=== PATIENT | female | born 1995 | race Caucasian/White ===

== ENCOUNTER 2017-06-05 08:18 | Emergency (ER) | payer BC ==
[~2017-06-05] VITALS: Ht 160 cm; Wt 81.6 kg
[2017-06-05] MEDS ORDERED: PHEN-578 PO (08:28)
[2017-06-05] MEDS ORDERED: SPIR25TA78 PO (08:28)
[2017-06-05] MEDS ORDERED: SULF-198 PO (08:28)
--- NOTE | 2017-06-05 08:29 | ER Report ---
History and Physical Time Seen By MD: 08:28 Hx. of Stated Complaint: pt recently tx for uti with cipro. did not get better and was switched to bactrim yesterday.Awoke ith pain in abdomen, and bilat flanks. Had episode of vomiting last night HPI/ROS 22-year-old otherwise healthy female presents to the emergency department with an ongoing urinary tract infection that she has had for approximately one week. She was given ciprofloxacin for the infection approximately 8 days ago, and her symptoms do not improve. Her primary doctor in [place] changed her antibiotic yesterday from ciprofloxacin to Bactrim. She took 1 dose of Bactrim yesterday evening and had one episode of vomiting approximately an hour after taking the antibiotic. She did not take it this morning. She states she has ongoing symptoms of dysuria, urgency, and frequency. No fever chills, and only one episode of vomiting just after taking Bactrim. She describes suprapubic pain and some mild diffuse abdominal pain. No other complaints. Remainder of the 14 system rev: Yes Allergies: Coded Allergies: esomeprazole (Verified Allergy, Severe, ANAPHYLAXIS, 06/05/17) Home Meds Reported Medications Phentermine Hcl (PHENTERMINE HCL) 37.5 Mg Tablet, 37.5 MG PO QDAY 06/05/17 Spironolactone (SPIRONOLACTONE) 25 Mg Tablet, 25 MG PO QDAY, TAB 06/05/17 Sulfamethoxazole/Trimet 800-160 Mg Tab (BACTRIM DS TABLET) 1 Each Tablet, 1 TAB PO Q12H, TAB 06/05/17 Reviewed Nurses Notes: Yes Old Medical Records Reviewed: Yes Hx Smoking: No Smoking Status: Never Smoker Exposure to Second Hand Smoke?: No Hx Substance Use Disorder: No Hx Alcohol Use: No Constitutional Vital Sign - Last 24 Hours 06/05/17 08:22 Temp 98.2 Pulse 73 Resp 20 B/P (MAP) 136/75 Pulse Ox 97 O2 Delivery Room Air Physical Exam General Appearance: The patient is alert, has no immediate need for airway protection and no current signs of toxicity. Eyes: Pupils equal and round no injection. Respiratory: Chest is non tender, lungs are clear to auscultation. Cardiac: regular rate and rhythm Gastrointestinal: Abdomen is soft with diffuse mild TTP more in the RUQ, no masses, bowel sounds normal. Neck: Neck is supple and non tender. Extremities have full range of motion and are non tender. Skin: No rashes or lesions. DIFFERENTIAL DIAGNOSIS: After history and physical exam differential diagnosis was considered for abdominal pain including but not limited to appendicitis, cholecystitis, gastritis and urinary tract infection, pyelonephritis Medical Decision Making Data Points Result Diagram: 06/05/17 0859 06/05/17 0859 Laboratory Hematology Test 06/05/17 08:25 06/05/17 08:59 Urine Color Yellow Urine Clarity Clear Urine pH 5.0 pH (4.8-9.5) Urine Specific [place] 1.024 Urine Protein Negative mg/dL (NEGATIVE) Urine Glucose (UA) Negative mg/dL (NEGATIVE) Urine Ketones Negative mg/dL (NEGATIVE) Urine Blood Small (NEGATIVE) Urine Nitrite Negative (NEGATIVE) Urine Bilirubin Negative (NEGATIVE) Urine Urobilinogen Negative mg/dL (0.2-1.9) Urine Leukocyte Esterase Negative (NEGATIVE) Urine RBC 1 /HPF (0-2/HPF) Urine WBC 2 /HPF (0-5/HPF) Urine Squamous Epithelial Cells Many /LPF (</=FEW) Urine Transitional Epithelial Cells Few /LPF (NONE-FEW) Urine Bacteria Negative /HPF (NONE-FEW) Urine Mucus Few /HPF (NONE-FEW) Urine HCG, Qualitative Negative (NEGATIVE) Red Blood Count 5.78 M/uL (4.17-5.56) Mean Corpuscular Volume 82.7 fL (80.0-96.0) Mean Corpuscular Hemoglobin 28.1 pg (26.0-33.0) Mean Corpuscular Hemoglobin Concent 34.0 g/dL (32.0-36.0) Red Cell Distribution Width 13.7 % (11.5-14.5) Mean Platelet Volume 10.3 fL (7.2-11.1) Neutrophils (%) (Auto) 76.1 % (39.4-72.5) Lymphocytes (%) (Auto) 18.4 % (17.6-49.6) Monocytes (%) (Auto) 4.3 % (4.1-12.4) Eosinophils (%) (Auto) 0.7 % (0.4-6.7) Basophils (%) (Auto) 0.5 % (0.3-1.4) Nucleated RBC Relative Count (auto) 0.0 /100WBC Neutrophils # (Auto) 6.5 K/uL (2.0-7.4) Lymphocytes # (Auto) 1.6 K/uL (1.3-3.6) Monocytes # (Auto) 0.4 K/uL (0.3-1.0) Eosinophils # (Auto) 0.1 K/uL (0.0-0.5) Basophils # (Auto) 0.0 K/uL (0.0-0.1) Nucleated RBC Absolute Count (auto) 0.00 K/uL Sodium Level 139 mmol/L (137-145) Potassium Level 4.0 mmol/L (3.5-5.0) Chloride Level 105 mmol/L (98-107) Carbon Dioxide Level 22 mmol/L (22-31) Blood Urea Nitrogen 14 mg/dl (7-18) Creatinine 0.80 mg/dl (0.52-1.04) Glomerular Filtration Rate Calc > 60.0 Random Glucose 77 mg/dl (75-110) Calcium Level 9.0 mg/dl (8.4-10.2) Total Bilirubin 1.0 mg/dl (0.2-1.3) Aspartate Amino Transf (AST/SGOT) 18 U/L (0-35) Alanine Aminotransferase (ALT/SGPT) 27 U/L (0-56) Alkaline Phosphatase 59 U/L (0-126) Total Protein 7.1 gm/dl (6.3-8.2) Albumin 4.4 g/dl (3.5-5.0) Lipase 59 U/L (23-300) Chemistry Test 06/05/17 08:25 06/05/17 08:59 Urine Color Yellow Urine Clarity Clear Urine pH 5.0 pH (4.8-9.5) Urine Specific [place] 1.024 Urine Protein Negative mg/dL (NEGATIVE) Urine Glucose (UA) Negative mg/dL (NEGATIVE) Urine Ketones Negative mg/dL (NEGATIVE) Urine Blood Small (NEGATIVE) Urine Nitrite Negative (NEGATIVE) Urine Bilirubin Negative (NEGATIVE) Urine Urobilinogen Negative mg/dL (0.2-1.9) Urine Leukocyte Esterase Negative (NEGATIVE) Urine RBC 1 /HPF (0-2/HPF) Urine WBC 2 /HPF (0-5/HPF) Urine Squamous Epithelial Cells Many /LPF (</=FEW) Urine Transitional Epithelial Cells Few /LPF (NONE-FEW) Urine Bacteria Negative /HPF (NONE-FEW) Urine Mucus Few /HPF (NONE-FEW) Urine HCG, Qualitative Negative (NEGATIVE) White Blood Count 8.5 k/uL (4.5-11.0) Red Blood Count 5.78 M/uL (4.17-5.56) Hemoglobin 16.2 g/dL (12.0-16.0) Hematocrit 47.8 % (34.0-47.0) Mean Corpuscular Volume 82.7 fL (80.0-96.0) Mean Corpuscular Hemoglobin 28.1 pg (26.0-33.0) Mean Corpuscular Hemoglobin Concent 34.0 g/dL (32.0-36.0) Red Cell Distribution Width 13.7 % (11.5-14.5) Platelet Count 212 K/uL (150-450) Mean Platelet Volume 10.3 fL (7.2-11.1) Neutrophils (%) (Auto) 76.1 % (39.4-72.5) Lymphocytes (%) (Auto) 18.4 % (17.6-49.6) Monocytes (%) (Auto) 4.3 % (4.1-12.4) Eosinophils (%) (Auto) 0.7 % (0.4-6.7) Basophils (%) (Auto) 0.5 % (0.3-1.4) Nucleated RBC Relative Count (auto) 0.0 /100WBC Neutrophils # (Auto) 6.5 K/uL (2.0-7.4) Lymphocytes # (Auto) 1.6 K/uL (1.3-3.6) Monocytes # (Auto) 0.4 K/uL (0.3-1.0) Eosinophils # (Auto) 0.1 K/uL (0.0-0.5) Basophils # (Auto) 0.0 K/uL (0.0-0.1) Nucleated RBC Absolute Count (auto) 0.00 K/uL Glomerular Filtration Rate Calc > 60.0 Calcium Level 9.0 mg/dl (8.4-10.2) Total Bilirubin 1.0 mg/dl (0.2-1.3) Aspartate Amino Transf (AST/SGOT) 18 U/L (0-35) Alanine Aminotransferase (ALT/SGPT) 27 U/L (0-56) Alkaline Phosphatase 59 U/L (0-126) Total Protein 7.1 gm/dl (6.3-8.2) Albumin 4.4 g/dl (3.5-5.0) Lipase 59 U/L (23-300) Urinalysis Test 06/05/17 08:25 Urine Color Yellow Urine Clarity Clear Urine pH 5.0 pH (4.8-9.5) Urine Specific [place] 1.024 Urine Protein Negative mg/dL (NEGATIVE) Urine Glucose (UA) Negative mg/dL (NEGATIVE) Urine Ketones Negative mg/dL (NEGATIVE) Urine Blood Small (NEGATIVE) Urine Nitrite Negative (NEGATIVE) Urine Bilirubin Negative (NEGATIVE) Urine Urobilinogen Negative mg/dL (0.2-1.9) Urine Leukocyte Esterase Negative (NEGATIVE) Urine RBC 1 /HPF (0-2/HPF) Urine WBC 2 /HPF (0-5/HPF) Urine Squamous Epithelial Cells Many /LPF (</=FEW) Urine Transitional Epithelial Cells Few /LPF (NONE-FEW) Urine Bacteria Negative /HPF (NONE-FEW) Urine Mucus Few /HPF (NONE-FEW) Urine HCG, Qualitative Negative (NEGATIVE) ED Course/Re-evaluation ED Course Symptoms have improved after 1 L of normal saline and 30 mg of Toradol. She is able to take by mouth. Her LFTs are within normal limits. A UA is negative for infection. It is difficult to interpret lab data given she has been on multiple doses of antibiotics, however given her ongoing symptoms I were switch her from Bactrim to Keflex. I do not think this is pyelonephritis. Her hCG is negative. She denies any vaginal discharge or symptoms of an STD. I do not think this is acute gallbladder disease. She is a student at the [employer]. I did send a urine culture. I will give her a prescription for Keflex, and have her follow up with the student health clinic. Decision to Disposition Date: Jun 05, 2017 Decision to Disposition Time: 10:00 Depart Departure Latest Vital Signs Vital Signs Date Time Temp Pulse Resp B/P (MAP) Pulse Ox O2 Delivery O2 Flow Rate FiO2 06/05/17 08:22 98.2 73 20 136/75 97 Room Air Impression: Primary Impression: UTI (urinary tract infection) Condition: Improved Disposition: HOME OR SELF-CARE Referrals: GEOFF,PRIYA RUBBER ENGRAVER (PCP) New Scripts Cephalexin Monohydrate (CEPHALEXIN) 500 Mg Cap 500 MG PO BID for 5 Days, #10 CAP 0 Refills Prov: KHADIJAH CLEMENTE MD 06/05/17 Patient Instructions: Urinary Tract Infection in Women (ED) Problem Qualifiers Primary Impression: UTI (urinary tract infection) Urinary tract infection type: acute cystitis Hematuria presence: without hematuria Qualified Codes: N30.00 - Acute cystitis without hematuria KHADIJAH CLEMENTE MD Jun 05, 2017 08:29
[2017-06-05] MEDS ORDERED: NS(*) 0.9% 1000 ML BAG 1,000 ML IV ONE (08:38)
[2017-06-05] MEDS ORDERED: KETOROLAC 30 MG/ML VIAL IVP ONE (08:40)
[2017-06-05 09:10] LABS: PLATELET COUNT, AUTOMATED 212 K/uL (150-450)
[2017-06-05] MEDS ORDERED: CEPHALEXIN MONO 500 MG CAP PO ONE (09:50)
[2017-06-05 09:59] VITALS: BP 140/94
[2017-06-05] MEDS ORDERED: CEPH500C24 PO (10:03)
== END 2017-06-05 10:08 | disposition home or self-care (01) ==
LOC: ER 08:20
DX: N30.00 Acute cystitis without hematuria (principal)
CPT/HCPCS: 81001; 81025; 83690; 85025; 87088; 96361; 96374; 99284; J1885; J7030; 82040; 82247; 82310; 82374; 82435; 82565; 82947; 84075; 84132; 84155; 84295; 84450; 84460; 84520

== ENCOUNTER 2017-11-21 21:17 | Emergency (ER) | payer BC ==
[~2017-11-21 21:17] MED LIST: CEPH500C24 PO; PHEN-578 PO; SPIR25TA78 PO; SULF-198 PO
--- NOTE | 2017-11-21 21:22 | ER Report ---
History and Physical Time Seen By MD: 21:18 HPI/ROS CHIEF COMPLAINT: Left foot injury HISTORY OF PRESENT ILLNESS: 22-year-old female presents ambulatory to the ER concerned about her left foot. She had a horse step on it. There is obvious bruising and ecchymosis at the base of the 2nd, 3rd and 4th toes. There are some abrasions. His abrasions to her right kendrick. Patient thinks her tetanus status is up-to-date from 2017. Allergies: Coded Allergies: esomeprazole (Verified Allergy, Severe, ANAPHYLAXIS, 11/21/17) Home Meds Active Scripts Hydrocodone Bit/Acetaminophen (NORCO 5-325 TABLET) 1 Each Tablet, 1 EACH PO Q4H Y for PAIN, #8 TAB Prov:SARAH NGO DO 11/21/17 Reported Medications Phentermine Hcl (PHENTERMINE HCL) 37.5 Mg Tablet, 37.5 MG PO QDAY 06/05/17 Spironolactone (SPIRONOLACTONE) 25 Mg Tablet, 25 MG PO BID, TAB 06/05/17 Discontinued Reported Medications Sulfamethoxazole/Trimet 800-160 Mg Tab (BACTRIM DS TABLET) 1 Each Tablet, 1 TAB PO Q12H, TAB 06/05/17 Discontinued Scripts Cephalexin Monohydrate (CEPHALEXIN) 500 Mg Cap, 500 MG PO BID for 5 Days, #10 CAP 0 Refills Prov:KHADIJAH CLEMENTE MD 06/05/17 Reviewed Nurses Notes: Yes Old Medical Records Reviewed: Yes Hx Smoking: No Smoking Status: Never Smoker Exposure to Second Hand Smoke?: No Hx Substance Use Disorder: No Hx Alcohol Use: No Constitutional Vital Sign - Last 24 Hours 11/21/17 11/21/17 21:21 22:04 Temp 98.0 Pulse 95 81 Resp 16 16 B/P (MAP) 138/81 119/79 (92) Pulse Ox 95 97 O2 Delivery Room Air Room Air Physical Exam General appearance: Alert no distress. Respiratory: Chest is non tender, lungs are clear to auscultation. Cardiac: Regular rate and rhythm Extremities: Examination of the left foot reveals significant soft tissue swelling and bruising at the base of the 2nd, 3rd and 4th toe. All digits are neurovascularly intact. Patient has intact pulses. She has decreased range of motion consistent with her injury DIFFERENTIAL DIAGNOSIS: After history and physical exam differential diagnosis was considered for sprain, strain, fracture, dislocation, contusion, crush injury Medical Decision Making EKG/Imaging Imaging X-ray: Three-view his left foot was obtained. I viewed the images myself on the PACS system. My interpretation of the images is: No fracture no dislocation or malalignment, no foreign bodies noted. The radiologist interpretation had no clinically significant variation from this interpretation. ED Course/Re-evaluation ED Course Patient was minute to an examination room. H&P was done. The differential diagnoses was considered. On clinical examination. Patient has significant soft tissue swelling. Diagnostic x-rays show no obvious fracture. She has contusion and crush injury. She is advised to conservative treatment plan of ibuprofen 600 mg 3 times daily. She's given a limited supply of [place] for temporary pain relief. Decision to Disposition Date: Nov 21, 2017 Decision to Disposition Time: 21:53 Depart Departure Latest Vital Signs Vital Signs Date Time Temp Pulse Resp B/P (MAP) Pulse Ox O2 Delivery O2 Flow Rate FiO2 11/21/17 22:04 81 16 119/79 (92) 97 Room Air 11/21/17 21:21 98.0 Impression: Primary Impression: Crush injury of left foot Additional Impression: Contusion of left foot Condition: Improved Disposition: HOME OR SELF-CARE New Scripts Hydrocodone Bit/Acetaminophen (NORCO 5-325 TABLET) 1 Each Tablet 1 EACH PO Q4H Y for PAIN, #8 TAB Prov: SARAH NGO DO 11/21/17 Patient Instructions: Contusion in Adults (ED) Additional Instructions: Take ibuprofen 200 mg 3 tablets 3 times a day with food for 3-5 days Apply ice to your foot 30-60 minutes 3-4 times per day for the 1st 2 days then switch to heat Elevate and avoid activity if it hurts Problem Qualifiers Primary Impression: Crush injury of left foot Encounter type: initial encounter Qualified Codes: S97.82XA - Crushing injury of left foot, initial encounter Additional Impression: Contusion of left foot Encounter type: initial encounter Qualified Codes: S90.32XA - Contusion of left foot, initial encounter SARAH NGO DO Nov 21, 2017 21:22
[2017-11-21] MEDS ORDERED: IBUPROFEN 600 MG TAB PO ONE (21:25)
[2017-11-21] MEDS ORDERED: APAP/HYDROCODONE 325/5 TAB PO ONE (21:25)
--- NOTE | 2017-11-21 21:53 | RADIOLOGY IMAGING REPORT ---
FACILITY: [facility] [place] PATIENT NAME: Soraya Mcconnell : 1995 MR: [id number] V: [id number] EXAM DATE: ORDERING PHYSICIAN: SARAH NGO TECHNOLOGIST: Location: [facility] [place] Patient: Soraya Mcconnell : 1995 Visit/Account:[id number] Date of Sevice: 11/21/2017 FOOT 3 VIEW LEFT HISTORY: Horse stepped on foot. Pain and bruising near big toe. COMPARISON: None. TECHNIQUE: AP, oblique, and lateral views of the left foot. FINDINGS: There is no fracture or dislocation. There is soft tissue swelling of the proximal great to e. IMPRESSION: 1. No acute osseous abnormality of the left foot. Report Dictated By: Annmarie Hodge at 11/21/2017 9:47 PM Report E-Signed By: Annmarie Hodge at 11/21/2017 9:49 PM WSN:[id number]
[2017-11-21] MEDS ORDERED: ACET/HYDROC 5/325MG TH ER ONLY 2 TAB/BOTTLE PO ONE (21:55)
[2017-11-21] MEDS ORDERED: HYDR-4309 PO (21:55)
[2017-11-21 22:04] VITALS: BP 119/79
== END 2017-11-21 22:07 | disposition home or self-care (01) ==
LOC: ER 21:20
DX: S97.82XA Crushing injury of left foot, initial encounter (principal); S90.32XA Contusion of left foot, initial encounter; W55.19XA Other contact with horse, initial encounter
CPT/HCPCS: 99283

== ENCOUNTER → 2018-03-25 | Outpatient (CLI) | payer BC ==
[~2018-03-25] MED LIST changes: +ETHI1TAB16 PO; +HYDR-653 PO; -SPIR25TA78 PO; +SPIR25TA80 PO
== END ==
LOC: LAB 15:37
PROVIDERS: ATTEND Student in an Organized Health Care Education/Training Program
DX: R53.83 Other fatigue (principal)
CPT/HCPCS: 36415; 84443

== ENCOUNTER 2018-07-23 01:58 | Day surgery (SDC) | payer BC ==
[~2018-07-23] VITALS: Ht 160 cm; Wt 96.2 kg
[~2018-07-23 01:58] MED LIST changes: +LORA-809 PO
[2018-07-23] MEDS ORDERED: PROPOFOL EMUL(*) 10MG/ML 20 ML 20 ML ONE (10:27)
[2018-07-23] MEDS ORDERED: ROCURONIUM BROM 10 MG/ML 10 ML ONE (10:27)
[2018-07-23] MEDS ORDERED: DEXAMETHASONE SOD 4 MG/ML VIAL ONE (10:27)
[2018-07-23] MEDS ORDERED: ONDANSETRON 4 MG/2 ML VIAL ONE (10:27)
[2018-07-23] MEDS ORDERED: LIDOCAINE MPF 1% 5 ML VIAL ONE (10:27)
[2018-07-23] MEDS ORDERED: SUGAMMADEX SOD 200 MG/2 ML SDV ONE (10:27)
[2018-07-23] MEDS ORDERED: fentaNYL CITR 250 MCG/5 ML AMP ONE (10:27)
[2018-07-23] MEDS ORDERED: FAMOTIDINE 20 MG TAB PO ONE (11:30)
[2018-07-23] MEDS ORDERED: MIDAZOLAM 2 MG/2 ML VIAL IVP PRN (11:30)
[2018-07-23] MEDS ORDERED: LIDOCAINE/SOD BICARB 8.4% SYR ID ONE (11:30)
[2018-07-23] MEDS ORDERED: NORMOSOL R SOLN(*) 1000 ML BAG 1,000 ML IV PRN (11:30)
[2018-07-23 11:32] VITALS: BP 129/77
[2018-07-23 11:44] LABS: PLATELET COUNT, AUTOMATED 180 K/uL (150-450)
[2018-07-23] MEDS ORDERED: ROPIVACAINE 0.2% 20 ML VIAL ONE (12:03)
[2018-07-23] MEDS ORDERED: KETAMINE HCL-NS 50 MG/5 ML SYR ONE (13:19)
[2018-07-23] MEDS ORDERED: LR(*) 1000 ML BAG 1,000 ML IV ONE (14:46)
[2018-07-23] MEDS ORDERED: APAP/HYDROCODONE 325/5 TAB PO PRN (14:50)
[2018-07-23] MEDS ORDERED: KETOROLAC 30 MG/ML VIAL ONE (14:52)
--- NOTE | 2018-07-23 14:54 | Post Operative Note ---
Operative Note - EDUCATIONAL TECHNOLOGIST Operative Day Date: Jul 23, 2018 Time: 14:47 Physicians Surgeon: Ashwin Anesthesia: GETA Diagnosis Pre-Op Diagnosis: Dysmenorrhea Irregular menstruation Dyspareunia Post-Op Diagnosis: same Procedure Findings: endometriosis of pelvic peritoneum Procedure(s): L-scope resection of endometriosis L-scope fulguration of endometriosis Specimen Removed:(Maybe N/A): left uterosacral ligament peritoneum posterior culdesac Complications: none #[id number] Fluids Fluids: 1900 ml Estimated Blood Loss: minmal Dictated Date OP Note Dictated: Jul 23, 2018 Time OP Note Dictated: 14:49 Copies to: ONIEL CHILEL MD ; ONIEL CHILEL MD Jul 23, 2018 14:54
[2018-07-23] MEDS ORDERED: IBUP800T37 PO (14:57)
[2018-07-23] MEDS ORDERED: LOR5/325 PO (14:57)
--- NOTE | 2018-07-23 15:01 | Short(Outpt) Discharge Summary ---
Discharge Summary Reason for Hosp/Final Diag: (1) Dyspareunia, female (2) Endometriosis, pelvic peritoneum Hospital Course & Plan: s/p L-scope resection of endometriosi L-scope fulguration of endometriosis (3) Dysmenorrhea (4) Irregular menstruation Departure Discharge to: Home, Self Care Discharge Instructions Home Meds Active Scripts Hydrocodone Bit/Acetaminophen (HYDROCODON-ACETAMINOPHEN 5-325) 1 Each Tablet, 1- 2 EACH PO Q4H PRN for PAIN, #20 TAB 0 Refills Prov:ONIEL CHILEL MD 07/23/18 Reported Medications Loratadine/Pseudoephedrine (CLARITIN-D 12 HOUR TABLET) 1 Each Tab.er.12h, 1 EACH PO QDAY 07/21/18 Discontinued Reported Medications Phentermine Hcl (PHENTERMINE HCL) 37.5 Mg Tablet, 37.5 MG PO QDAY 06/05/17 Spironolactone (SPIRONOLACTONE) 25 Mg Tablet, 25 MG PO BID, TAB 06/05/17 Discontinued Scripts Ethinyl Estradiol/Drospirenone (GIANVI 3 MG-0.02 MG TABLET) 1 Each Tablet, 1 EACH PO DAILY, #1 PACK 12 Refills Prov:FELICIA BERNARD DO 03/25/18 Hydrocodone Bit/Acetaminophen (NORCO 5-325 TABLET) 1 Each Tablet, 1 EACH PO Q4H PRN for PAIN, #8 TAB Prov:SARAH NGO DO 11/21/17 Follow up Referrals: ICE CREAM MIXER - In 6 Weeks @ [facility] with ONIEL CHILEL MD Diet: Regular Activity: As Tolerated Copies to: ONIEL CHILLE MD ; ONIEL CHILEL MD Jul 23, 2018 15:01
[2018-07-23] MEDS ORDERED: fentaNYL CITR 100 MCG/2 ML AMP ONE (15:06)
[2018-07-23 15:52] VITALS: BP 108/62
[2018-07-23 16:00] VITALS: BP 107/75
--- NOTE | 2018-07-23 16:01 | OPERATIVE REPORT 1 ---
EVENT DATE: July 23, 2018 SURGEON: Keron Christopher MD ANESTHESIOLOGIST: Navarro Cope MD ANESTHESIA: General endotracheal. PREOPERATIVE DIAGNOSES 1. Dysmenorrhea. 2. Dyspareunia. 3. Irregular menstruation. POSTOPERATIVE DIAGNOSES 1. Dysmenorrhea. 2. Dyspareunia. 3. Irregular menstruation. PROCEDURES PERFORMED 1. Laparoscopic resection of endometriosis. 2. Laparoscopic fulguration of endometriosis. ESTIMATED BLOOD LOSS Minimal. FLUIDS Crystalloid 1900 mL IV. 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 Normal- appearing ovaries and tubes bilaterally. Normal abdominal contents otherwise. PROCEDURE IN DETAIL The patient was brought to the operating room with a working IV, placed in the dorsal supine position. She was placed under general endotracheal anesthesia and moved to the dorsal lithotomy position. She was prepped and draped in the usual sterile fashion. A single-arm speculum was placed in the vagina. The cervix was visualized with IUD strings evident from the cervical os. Cervix was then grasped on the anterior lip with a single-toothed tenaculum, and it was sounded to a depth of 8 cm anteverted. This was carefully dilated to a size 5 Hegar dilator, and a 6 cm GIRISH uterine manipulator was selected, assembled, passed through the cervix into the uterus, bulb inflated and secured, and all other instruments were then removed. The legs were brought back to the supine position. The bladder has been drained at prep, and gloves were changed. We proceeded with laparoscopy by infiltrating the umbilicus with 0.2% Naropin. A 5 mm stab incision was made, and a Veress needle was then passed through this incision into the abdomen while elevating and stabilizing the anterior abdominal wall. A pneumoperitoneum was created to an intra-abdominal pressure of 20 mmHg. The Veress needle was then removed, and a 5 mm bladeless trocar was then passed through this incision into the abdomen under direct visualization with the scope. The patient was removed to the Trendelenburg position, and two additional 5 mm ports were placed under similar technique in the suprapubic and left lower quadrant locations. These were all performed via direct visualization and without incident. The pressure was then reduced to 15 mmHg, and the procedure continued as follows. The abdomen and pelvis were inspected and surveyed with the above findings noted and documented. Using a [place] grasper and laparoscopic scissors, the endometriosis involving the left uterosacral ligament was resected out after first identifying the ureter and avoiding any of its underlying location. The same procedure was followed in the posterior cul-de-sac. Monopolar cautery was then utilized to fulgurate endometriosis in the posterior cul-de-sac, continued on the left uterosacral ligament, and posterior ovarian fossa, taking care to avoid injury to the underlying ureter, and the same along the right side. As mentioned, the ureters were carefully identified and avoided. The uterus was then placed in the retroverted position, and inspection of the anterior cul-de-sac was performed. A few very small endometriotic lesions were then fulgurated in the peritoneum overlying the bladder without a significant depth of penetration. The entire pelvis was copiously irrigated. There was no significant bleeding upon completion; therefore, the irrigation was suctioned out. Pneumoperitoneum was suctioned out. All instruments were then removed from the patient's abdomen, and skin incisions were repaired with a 4-0 Monocryl simple subdermal and covered with Dermabond skin adhesive. She tolerated the procedure well. The GIRISH uterine manipulator was removed, and the IUD was confirmed to still be intrauterine. Therefore, she was awakened from general anesthesia in stable condition and taken to Recovery. Sponge, lap, needle, and instrument counts were all correct times three. MTDD
[2018-07-23 16:15] VITALS: BP 102/63
[2018-07-23 16:44] VITALS: BP 106/72
[2018-07-23 16:46] VITALS: BP 117/65
== END 2018-07-23 15:52 | disposition home or self-care (01) ==
LOC: OR 01:58
PROVIDERS: ATTEND Obstetrics & Gynecology
DX: N94.10 Unspecified dyspareunia (principal); N94.6 Dysmenorrhea, unspecified; N92.6 Irregular menstruation, unspecified
CPT/HCPCS: 58662; 84703; 85025; 88307; J1100; J1885; J2001; J2250; J2405; J2704; J2795; J3010; J3490

== ENCOUNTER 2018-12-12 21:20 | Emergency (ER) | payer BC ==
[~2018-12-12 21:20] MED LIST changes: +IBUP800T37 PO; +LOR5/325 PO
--- NOTE | 2018-12-12 21:23 | ER Report ---
History and Physical Time Seen By MD: 21:19 HPI/ROS CHIEF COMPLAINT: Fever, dizziness HISTORY OF PRESENT ILLNESS: 23-year-old female with a history of pots syndrome complaining of fever for several hours today. She denies exposure to ill contacts. She notes no photophobia, no stiff neck and no headache. Patient denies rhinitis, sore throat or cough. She denies shortness of breath. She denies dysuria. She denies vomiting or diarrhea. She does note some mild nausea. REVIEW OF SYSTEMS: Respiratory: No cough, no dyspnea. Cardiovascular: No chest pain, no palpitations. Gastrointestinal: No vomiting, no abdominal pain. Musculoskeletal: No back pain. Allergies: Coded Allergies: esomeprazole (Verified Allergy, Severe, ANAPHYLAXIS, 11/21/17) Home Meds Active Scripts Ibuprofen (IBUPROFEN) 800 Mg Tablet, 1 TAB PO Q8H PRN for PAIN, #30 TAB 0 Refills Take with food for pain no closer than every 8 hours. Prov:ONIEL CHILEL MD 07/23/18 Hydrocodone Bit/Acetaminophen (HYDROCODON-ACETAMINOPHEN 5-325) 1 Each Tablet, 1- 2 EACH PO Q4H PRN for PAIN, #20 TAB 0 Refills Prov:ONIEL CHILEL MD 07/23/18 Reported Medications Loratadine/Pseudoephedrine (CLARITIN-D 12 HOUR TABLET) 1 Each Tab.er.12h, 1 EACH PO QDAY 07/21/18 Reviewed Nurses Notes: Yes Old Medical Records Reviewed: Yes Hx Smoking: No Smoking Status: Never Smoker Exposure to Second Hand Smoke?: No Hx Substance Use Disorder: No Hx Alcohol Use: No Constitutional Vital Sign - Last 24 Hours 12/12/18 12/12/18 21:23 22:00 Temp 98.4 Pulse 102 Resp 16 B/P (MAP) 128/75 123/75 (91) Pulse Ox 94 O2 Delivery Room Air Physical Exam General Appearance: The patient is alert, has no immediate need for airway protection and no current signs of toxicity. Vital signs stable, afebrile, pulse ox normal HEENT: Pupils equal and round no injection. TMs normal, oropharynx are redness or exudate Respiratory: Chest is non tender, lungs are clear to auscultation. Cardiac: regular rate and rhythm, no murmur Gastrointestinal: Abdomen is soft and non tender, no masses, bowel sounds normal. Musculoskeletal: Neck: Neck is supple and non tender. No lymphadenopathy, no meningismus Extremities have full range of motion and are non tender. Skin: No rashes or lesions. DIFFERENTIAL DIAGNOSIS: After history and physical exam differential diagnosis was considered for adult fever including but not limited to viral syndromes including influenza, urinary tract infection, pneumonia and sepsis. Medical Decision Making Data Points Laboratory Urinalysis Test 12/12/18 21:38 Urine Color Yellow Urine Clarity Clear Urine pH 7.0 pH (4.8-9.5) Urine Specific [place] 1.018 Urine Protein Negative mg/dL (NEGATIVE) Urine Glucose (UA) Negative mg/dL (NEGATIVE) Urine Ketones Negative mg/dL (NEGATIVE) Urine Blood Negative (NEGATIVE) Urine Nitrite Negative (NEGATIVE) Urine Bilirubin Negative (NEGATIVE) Urine Urobilinogen Negative mg/dL (0.2-1.9) Urine Leukocyte Esterase Negative (NEGATIVE) Urine RBC 1 /HPF (0-2/HPF) Urine WBC 1 /HPF (0-5/HPF) Urine Squamous Epithelial Cells Many /LPF (</=FEW) Urine Bacteria Few /HPF (NONE-FEW) Urine Mucus Few /HPF (NONE-FEW) Urine HCG, Qualitative Negative (NEGATIVE) ED Course/Re-evaluation ED Course Patient was admitted to an examination room. H&P was done. The differential diagnoses was considered. There is no signs of clinical infection on examination. Patient is afebrile, but claims a fever to 102 at home. She took ibuprofen. A urinalysis is performed which is unremarkable. Patient advised ibuprofen and Tylenol. Increase fluid intake for treatment of a viral symptoms, fever. She is advised to follow-up with primary care if unimproved in 2-3 days. Decision to Disposition Date: Dec 12, 2018 Decision to Disposition Time: 21:53 Depart Departure Latest Vital Signs Vital Signs Date Time Temp Pulse Resp B/P (MAP) Pulse Ox O2 Delivery O2 Flow Rate FiO2 12/12/18 22:00 123/75 (91) 12/12/18 21:23 98.4 102 16 94 Room Air Impression: Primary Impression: Fever Additional Impressions: Headache Dizziness Viral syndrome POTS (postural orthostatic tachycardia syndrome) Condition: Stable Disposition: HOME OR SELF-CARE Referrals: FELICIA BERNARD DO (PCP) Patient Instructions: Viral Syndrome (ED) Additional Instructions: Alternate ibuprofen and Tylenol Drink plenty of fluids to stay well hydrated Follow-up with your primary doctor if unimproved in 2-3 days Problem Qualifiers Primary Impression: Fever Fever type: unspecified Qualified Codes: R50.9 - Fever, unspecified Additional Impressions: Headache Headache type: unspecified Headache chronicity pattern: acute headache Intractability: not intractable Qualified Codes: R51 - Headache SARAH NGO DO Dec 12, 2018 21:23
[2018-12-12 22:00] VITALS: BP 123/75
== END 2018-12-12 22:07 | disposition home or self-care (01) ==
LOC: ER 21:35
DX: B34.9 Viral infection, unspecified (principal); R00.0 Tachycardia, unspecified
CPT/HCPCS: 81001; 81025; 99282